=== PATIENT | male | born 1975 | race Caucasian/White ===

== ENCOUNTER 2020-03-16 19:53 | Emergency (ER) | payer BC ==
[~2020-03-16] VITALS: Ht 200.5 cm; Wt 104.3 kg
[~2020-03-16 19:53] MED LIST: CETI10CA PO; OMEP-10 PO; PHEN-633 PO
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
[2020-03-16] MEDS ORDERED: diphenhydrAMINE 50 MG/ML INJ (BENADRYL) IVP ONE (20:00)
[2020-03-16] MEDS ORDERED: methylPREDNISolone 125 MG (Solu-MEDROL) VIAL IVP ONE (20:00)
[2020-03-16] MEDS ORDERED: FAMOTIDINE 20MG/2ML IV (PEPCID) IVP ONE (20:00)
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
[2020-03-16] MEDS ORDERED: PRD20T PO (20:45)
[2020-03-16 20:58] VITALS: BP 120/81
[2020-03-16] MEDS ORDERED: EPIN0.3P3 IJ (21:01)
== END 2020-03-16 21:03 | disposition home or self-care (01) ==
LOC: EDUNIT# 19:53 → ER 19:54
DX: L50.9 Urticaria, unspecified (principal); G40.909 Epilepsy, unspecified, not intractable, without status epilepticus; K21.9 Gastro-esophageal reflux disease without esophagitis; Z88.8 Allergy status to other drugs, medicaments and biological substances
CPT/HCPCS: 96374; 96375

== ENCOUNTER 2020-06-27 00:27 | Emergency (ER) | payer BC ==
[~2020-06-27] VITALS: Ht 200 cm; Wt 104.0 kg
[~2020-06-27 00:27] MED LIST changes: +EPIN0.3P3 IJ; +PRD20T PO
[2020-06-27] MEDS ORDERED: methylPREDNISolone 125 MG (Solu-MEDROL) VIAL IV STA (00:53)
[2020-06-27] MEDS ORDERED: diphenhydrAMINE 50 MG/ML INJ (BENADRYL) IV STA (00:53)
[2020-06-27] MEDS ORDERED: FAMOTIDINE 20MG/2ML IV (PEPCID) IV STA (00:53)
--- NOTE | 2020-06-27 01:00 | ED Integumentary General ---
General Chief Complaint: Allergic Reaction Stated Complaint: HIVES Source: patient History of Present Illness Date Seen by Provider: Jun 27, 2020 Time Seen by Provider: 00:47 Initial Comments PT ARRIVES VIA POV FROM HOME C/O GENERALIZED HIVES--WOKE UP AROUND MIDNIGHT WITH THEM--WAS FINE WHEN HE WENT TO BED NO SWELLING OF LIPS/TONGUE/THROAT NO PROBLEMS TALKING OR BREATHING AND NO WHEEZING SLIGHT SWELLING NOTED TO HANDS HAS HAD THIS SEVERAL TIMES THIS YEAR--THINKS IT MIGHT BE RELATED TO EATING FAST FOOD--ATE A BURGER AT [place] AROUND 1900, AND LAST TIME IT WAS THIS BAD--SEEN HERE 03/16/20 FOR IT, HE HAD EATEN A BURGER AT [employer], AND DEVELOPED HIVES ABOUT 4 HOURS LATER. HAS HAD A COUPLE OF MINOR EPISODES SINCE THEN AND W ENT AWAY BY THE NEXT MORNING AFTER TAKING BENADRYL, BUT SOMETIMES TAKES A FEW DAYS TO GO AWAY NO NEW MEDICATIONS OR OTHER NEW EXPOSURES, ETC. PT WAS GIVEN RX FOR EPIPEN WITH LAST ER VISIT, BUT HE HAS NOT USED IT. PCP: DR. MAYO Allergies and Home Medications Allergies Uncoded Allergies: oxiclean (Allergy, Unknown, HIVES, 04/30/15) Home Medications Cetirizine Hcl 10 Mg Capsule, 10 MG PO DAILY, (Reported) Epinephrine 0.3 Mg/0.3 Ml Auto.injct, 0.3 MG IJ PRN PRN for anaphylaxis Prescribed by: JD PATTERSON on 03/16/202100 Omeprazole 20 Mg Capsule.dr, 20 MG PO DAILY, (Reported) Phenytoin Sodium 100 Mg Cap, 200 MG PO HS, (Reported) Prednisone 20 Mg Tab, 40 MG PO DAILY Prescribed by: JD PATTERSON on 03/16/202044 Prednisone 20 Mg Tab, 40 MG PO DAILY Prescribed by: JUSTA HOLDER on 06/27/20 0103 Patient Home Medication List Home Medication List Reviewed: Yes Review of Systems Review of Systems Constitutional: no symptoms reported; No chills, No diaphoresis, No dizziness, No fever, No malaise EENTM: no symptoms reported; No hoarseness, No mouth swelling, No nose congestion, No throat swelling Respiratory: no symptoms reported; No cough, No short of breath, No stridor, No wheezing Cardiovascular: no symptoms reported Gastrointestinal: no symptoms reported Genitourinary: no symptoms reported Musculoskeletal: see HPI Skin: see HPI Psychiatric/Neurological: No Symptoms Reported Endocrine: No Symptoms Reported Hematologic/Lymphatic: No Symptoms Reported Past Geitbqa-Dztawk-Ymrtze Hx Past Med/Social Hx: Reviewed and Corrections made Patient Social History Type Used: Cigarettes Recent Foreign Travel: No Contact w/Someone Who Travel: No Recent Hopitalizations: No Immunizations Up To Date Tetanus Booster (TDap): Less than 5yrs Past Medical History Surgeries: Yes (R elbow) Orthopedic Respiratory: No Cardiac: No Neurological: Yes Seizure Disorder Reproductive Disorders: No Sexually Transmitted Disease: No Genitourinary: No Gastrointestinal: Yes Gastroesophageal Reflux Musculoskeletal: No Endocrine: No HEENT: No Cancer: No Psychosocial: No Integumentary: No Blood Disorders: No Physical Exam Vital Signs Vital Signs - First Documented 06/27/20 00:34 Temp 37.0 Pulse 81 Resp 16 B/P (MAP) 115/84 (94) O2 Delivery Room Air Capillary Refill : General Appearance: WD/WN, no apparent distress, other (SMILING, PLEASANT, TALKATIVE. 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 NO APPRECIABLE SWELLING TO HANDS) Progress/Results/Core Measures Results/Orders My Orders Orders - JUSTA HOLDER DO Ed Iv/Invasive Line Start (06/27/20 00:53) Monitor-Rhythm Ecg Trace Only (06/27/20 00:53) Diphenhydramine Injection (Benadryl Inje (06/27/20 00:53) Methylprednisolone Sod Succ (Solu-Medrol (06/27/20 00:53) Famotidine Injection (Pepcid Injection) (06/27/20 00:53) Vital Signs/I&O 06/27/20 00:34 Temp 37.0 Pulse 81 Resp 16 B/P (MAP) 115/84 (94) O2 Delivery Room Air Progress Progress Note : Progress Note GIVEN PEPCID, SOLU-MEDROL, BENADRYL WITH SIGNIFICANT IMPROVEMENT ITCHING RESOLVED AND RASH ALMOST COMPLETELY GONE Departure Impression Primary Impression: Barry Disposition: 01 HOME, SELF-CARE Condition: Improved Departure-Patient Inst. Referrals: JUSTA MAYO MD (PCP/Family) Primary Care Physician Patient Instructions: Barry (DC) Add. Discharge Instructions: LOTS OF CLEAR LIQUIDS TAKE BENADRYL 50 MG EVERY 4 HOURS NEEDED FOR RASH AND ITCHING RETURN TO ER IF SYMPTOMS WORSEN FOLLOW UP WITH YOUR DR IF SYMPTOMS PERSIST All discharge instructions reviewed with patient and/or family. Voiced understanding. Scripts Prednisone (Prednisone) 20 Mg Tab 40 MG PO DAILY, #6 TAB 0 Refills Prov: JUSTA HOLDER DO 06/27/20 JUSTA HOLDER DO Jun 27, 2020 01:00
[2020-06-27] MEDS ORDERED: PRD20T PO (01:03)
[2020-06-27 02:03] VITALS: BP 121/81
== END 2020-06-27 02:03 | disposition home or self-care (01) ==
LOC: EDUNIT# 00:27 → ER 00:31
DX: L50.9 Urticaria, unspecified (principal); G40.909 Epilepsy, unspecified, not intractable, without status epilepticus; K21.9 Gastro-esophageal reflux disease without esophagitis; Z88.8 Allergy status to other drugs, medicaments and biological substances; Z79.52 Long term (current) use of systemic steroids
CPT/HCPCS: 93041